=== PATIENT | female | born 1945 | race Caucasian/White ===

== ENCOUNTER 2020-06-27 08:04 | Emergency (ER) | payer BC, MEDICARE ==
[2020-06-27] MEDS ORDERED: NORMAL SALINE 1000 ML 1,000 ML IV ONE (08:15)
[2020-06-27] MEDS ORDERED: DILTIAZEM HCL INJ 25 MG/5 ML VIAL IV ONE (08:15)
--- NOTE | 2020-06-27 08:22 | ER Document Report ---
ED General - General Chief Complaint: Respiratory Distress Stated Complaint: RESPIRATORY DISTRESS Primary Care Provider: MICHELL FORTE MD [Primary Care Provider] - Follow up as needed Mode of Arrival: Medic Information source: Patient, Emergency Med Personnel Cannot obtain history due to: Unstable vital signs Notes: 06/27/20 08:17 - ED Nursing Note by MARLA LEY Acct Num: [id number] : 1945 Patient Age: 75 Patient to ED by EMS with complaint of fall at home with sudden onset SOB. Patient per EMS had a fall at home just [employer]. Per EMS, on arrival, patient was alert and oriented. During attempt to stand patient to place on EMS stretcher, patient O2 saturation decreased to 60% on RA. Patient placed on NRB without significant improvement, placed on CPAP. O2 93% on arrival to ED. While being moved to ED bed, patient O2 decreased to 77% on CPAP. Patient placed on CPAP by Respiratory at bedside, improved to 80% at this time. Patient hx of Lung cancer, wears 2L NC at home. Patient had negative 12 lead. Patient reports difficulty breathing/SOB since yesterday. Patient lung sounds clear per EMS, RR 130-140's enroute, afebrile. 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 Lambert at [facility]. EMS 20G in LAC, 20G established in RAC. Blood drawn and sent to lab. Patient reports taking Xarelto, Potassium, Norvasc, Metoprolol, HCTZ, Folic Acid and B12. Patient is Aox4. Tachypneic at this time. HR 139. MY NOTES 75-year-old female arrives by EMS in respiratory distress. Patient uses oxygen 2 L with long tubing at home. She does not use BiPAP at home. EMS reports they have never been out to her house ongoing branch for her but rather for her . Patient was found to have 60% sat on room air and was 93% on BiPAP per EMS. Patient arrives tachycardic tachypneic hypoxic and patient is unable to provide history because of BiPAP in progress. Patient is on Xarelto Norvasc 5 metoprolol 50 HCTZ 25 B12 and folic acid. Patient refuses any intubation and is awake and able to make her choice known. She is able to shake her head yes and no and dislikes the BiPAP by placing her finger between it and her face. I was called by radiologist around 2044 with possibility of infiltrate pneumonia and also possible sousa. Her son arrived by 0 900 and he advises that she is seen by Dr. Josie Garcia at [place] and wants her transfer there. I attempted to call Dr. Fink at but was unable to get her on the phone. Her son attempted himself as well. I then called Pearl at the transfer center at [facility] and she advises that she will call us back. TRAVEL OUTSIDE OF THE [place] IN LAST 30 DAYS: No - HPI Onset: This morning Onset/Duration: Sudden, Persistent, Worse Severity: Moderate Pain Level: 3 Associated symptoms: Shortness of breath, Weakness Exacerbated by: Coughing, Deep breathing Relieved by: Denies Similar symptoms previously: Yes Recently seen / treated by doctor: Yes - 2 weeks ago at [facility] Dr. Cassidy Garcia; neg covid 19 at that time - Related Data Allergies/Adverse Reactions: No Known Allergies Allergy (Unverified 06/27/20 08:24) Past Medical History - General Information source: Patient, Emergency Med Personnel - Social History Smoking Status: Former Smoker - quit 25 years ago Cigarette use (# per day): No Chew tobacco use (# tins/day): No Smoking Education Provided: No Frequency of alcohol use: None Drug Abuse: None Lives with: Family Family History: COPD Patient has suicidal ideation: No Patient has homicidal ideation: No Review of Systems - Review of Systems -: Yes ROS unobtainable due to patient's medical condition Constitutional: No symptoms reported EENT: No symptoms reported Cardiovascular: See HPI, Orthopnea, Dyspnea, Lightheaded Respiratory: See HPI, Short of breath Gastrointestinal: No symptoms reported Genitourinary: No symptoms reported Female Genitourinary: No symptoms reported Musculoskeletal: No symptoms reported Skin: No symptoms reported Hematologic/Lymphatic: No symptoms reported Neurological/Psychological: No symptoms reported Physical Exam - Vital signs Vitals: Resp BP Pulse Ox 42 H 111/65 69 L 06/27/20 08:08 06/27/20 08:08 06/27/20 08:08 Interpretation: Tachycardic, Hypoxic, Tachypneic - General General appearance: Anxious - HEENT Head: Normocephalic, Atraumatic Eyes: Normal Pupils: PERRL External canal: Normal Tympanic membrane: Normal Sinus: Normal Nasal: Normal Mouth/Lips: Normal Mucous membranes: Dry Pharynx: Normal - Respiratory Respiratory status: Respiratory distress, Labored, Tachypnea Chest status: Nontender Breath sounds: Normal Chest palpation: Normal - Cardiovascular Rhythm: Tachycardia Heart sounds: Normal auscultation Murmur: No - Abdominal Inspection: Normal Distension: No distension Bowel sounds: Normal Tenderness: Nontender Organomegaly: No organomegaly - Rectal Hemorrhoids: Other - deferred - Genitourinary Bimanuel exam: Other - deferred - Back Back: Normal, Nontender - Extremities General upper extremity: Normal inspection, Nontender, Normal color, Normal ROM, Normal temperature General lower extremity: Normal inspection, Nontender, Normal color, Normal ROM, Normal temperature, Normal weight bearing. No: Deandra's sign - Neurological Neuro grossly intact: Yes Cognition: Normal Orientation: AAOx4 Christal Coma Scale Eye Opening: Spontaneous Christal Coma Scale Verbal: Oriented Christal Coma Scale Motor: Obeys Commands [place] Coma Scale Total: 15 Speech: Normal Motor strength normal: LUE, RUE, LLE, RLE Sensory: Normal - Psychological Associated symptoms: Anxious - Skin Skin Temperature: Warm Skin Moisture: Dry Skin Color: Normal Course - Vital Signs Vital signs: Temp Pulse Resp BP Pulse Ox 51 H 109/80 76 L 06/27/20 12:16 06/27/20 12:16 06/27/20 12:16 - Laboratory Result Diagrams: 06/27/20 08:12 06/27/20 08:12 Laboratory results interpreted by me: 06/27/20 06/27/20 06/27/20 08:12 08:12 08:12 RDW 16.5 H Band Neutrophils % 2 L Metamyelocytes % 2 H Carbonic Acid 0.92 L ABG pH 7.33 L ABG pCO2 30.6 L ABG pO2 55.9 L ABG HCO3 15.8 L ABG Total CO2 16.8 L ABG O2 Saturation 87.7 L Chloride 96 L Carbon Dioxide 17 L Anion Gap 24 H Glucose 266 H Direct Bilirubin 0.5 H AST 59 H Alkaline Phosphatase 136 H Total Protein 5.9 L Albumin 3.0 L Urine Protein Urine Glucose (UA) Urine Ketones Urine Blood Urine Urobilinogen 06/27/20 11:06 RDW Band Neutrophils % Metamyelocytes % Carbonic Acid ABG pH ABG pCO2 ABG pO2 ABG HCO3 ABG Total CO2 ABG O2 Saturation Chloride Carbon Dioxide Anion Gap Glucose Direct Bilirubin AST Alkaline Phosphatase Total Protein Albumin Urine Protein 100 H Urine Glucose (UA) 50 H Urine Ketones TRACE H Urine Blood SMALL H Urine Urobilinogen 2.0 H - Diagnostic Test Radiology reviewed: Reports reviewed - Patient does not meet any exclusion criteria for TPA at this time. I have reviewed the risks and benefits of ad ministration of TPA with the family at the bedside. We have reviewed the risks of intracranial bleed and the possible benefits of increased functional independence at 90 days with the use of TPA. - EKG Interpretation by Me EKG shows normal: Sinus rhythm Rate: Tachycardia - With heart rate [address] elevation no ST depression no T wave depression or elevation and this was read by me. Rhythm: SVT Critical Care Note - Critical Care Note Comments: I spoke with Dr. Wilbur navarro who is on-call for Dr. Brady. This call was made around 1000 and he advises he accepts the patient but needs a sousa test. I spoke with our laborer [facility] for this sousa test. Paperwork for transfer was filled out by myself. I spoke with Dr. Wilbur Amanda around 1210 around the time that both ground and air through with Luana RN arrived. Patient gave Zaira VALENTIN permission for intubation if she happened to go unconscious. Patient gave Rohith her son power of authority if something happened. Patient able to speak full sentences on 73% saturation. Discharge - Discharge Clinical Impression: Respiratory distress, acute, SVT (supraventricular tachycardia) COPD (chronic obstructive pulmonary disease) Qualifiers: COPD type: unspecified COPD Qualified Code(s): J44.9 - Chronic obstructive pulmonary disease, unspecified Lung cancer Qualifiers: Laterality: right Lung location: unspecified part of lung Qualified Code(s): C34.91 - Malignant neoplasm of unspecified part of right bronchus or lung Condition: Stable Disposition: [facility] Admitting Provider: Yuliet Amanda Additional Instructions: transfer this pt to [place] Referrals: MICHELL FORTE MD [Primary Care Provider] - Follow up as needed
[2020-06-27 08:50] LABS: HEMOGLOBIN 12.6 g/dL (12.0-15.5); MEAN CORPUSCULAR HGB CONC 32.3 g/dL (32.0-36.0); MEAN CORPUSCULAR VOLUME 83 fl (80-97); PLATELET COUNT 265 10^3/uL (150-450); RED BLOOD COUNT 4.68 10^6/uL (3.72-5.28); RED CELL DISTRIBUTION WIDTH 16.5 % (11.5-14.0); WHITE BLOOD COUNT 5.3 10^3/uL (4.0-10.5)
[2020-06-27] MEDS ORDERED: CEFTRIAXONE INJ 1000 MG VIAL IV ONE (08:54)
[2020-06-27] MEDS ORDERED: AZITHROMYCIN INJ 500 MG VIAL IV ONE (08:54)
[2020-06-27] MEDS ORDERED: DEXAMETHASONE SOD PHOS INJ 10 MG/1 ML VIAL IV ONE (08:55)
--- NOTE | 2020-06-27 09:00 | RADIOLOGY REPORT (SQ) ---
EXAM DESCRIPTION: CHEST SINGLE VIEW IMAGES COMPLETED DATE/TIME: 06/27/2020 8:33 am REASON FOR STUDY: hypoxia COMPARISON: None. EXAM PARAMETERS: NUMBER OF VIEWS: One view. TECHNIQUE: Single frontal radiographic view of the chest acquired. RADIATION DOSE: NA LIMITATIONS: None. FINDINGS: LUNGS AND PLEURA: Multifocal patchy areas of consolidation in the right upper lung and ri ght middle -right lower lung. Diffuse extensive multifocal areas of airspace disease and ground-glas s attenuated areas in the lungs. Differential diagnosis includes possibility of COVID-19 pneumonia, inflammatory/infectious etiologies, atypical infections. A loss of volume is suggested in the right upper lung with the possibility of mass not entirely exclu ded. Small right pleural effusion. No evidence of pneumothorax. MEDIASTINUM AND HILAR STRUCTURES: Fullness in the right hilar and mediastinal regions. HEART AND VASCULAR STRUCTURES: Heart normal in size. Normal vasculature. BONES: No acute findings. HARDWARE: None in the chest. OTHER: No other significant finding. IMPRESSION: 1. Extensive multifocal ground-glass attenuated areas and airspace disease in the lungs with patchy areas of consolidation suggested in the right lung. Considerations for these findings i nclude the possibility of COVID-19 pneumonia, inflammatory/infectious etiologies, atypical infections . 2. A loss of volumein the right upper lung with the possibility of mass not entirely excluded. Full ness in the right hilar and mediastinal regions. Correlation suggested. COMMENT: 1. The results of this examination were discussed with the emergency department provider o umnag 06/27/2020 at 08:50 hours. TECHNICAL DOCUMENTATION: JOB ID: [id number] 2010 [employer]- All Rights Reserved Reading location - IP/workstation name: [email or web address]
[2020-06-27 09:13] LABS: ABSOLUTE LYMPHOCYTES# (MANUAL) 1.1 10^3/uL (0.5-4.7); ABSOLUTE MONOCYTES # (MANUAL) 0.7 10^3/uL (0.1-1.4); BAND NEUTROPHILS % (MANUAL) 2 % (3-5); BASOPHILS % (MANUAL) 0 % (0-2); EOSINOPHILS % (MANUAL) 1 % (0-6); LYMPHOCYTES % (MANUAL) 18 % (13-45); METAMYELOCYTES % (MANUAL) 2 % (0-1); MONOCYTES % (MANUAL) 13 % (3-13); NUCLEATED RED BLOOD CELLS 2 /100 WBC (0); SEGMENTED NEUTROPHILS % (MAN) 62 % (42-78); TOTAL CELLS COUNTED 100
[2020-06-27 09:14] LABS: ALKALINE PHOSPHATASE 136 U/L (38-126); BILIRUBIN,DIRECT 0.5 mg/dL (0.0-0.4); BILIRUBIN,TOTAL 0.7 mg/dL (0.2-1.3); BLOOD UREA NITROGEN 20 mg/dL (7-20); CALCIUM 8.6 mg/dL (8.4-10.2); GLUCOSE 266 mg/dL (75-110); POTASSIUM 4.5 mmol/L (3.6-5.0); TOTAL PROTEIN 5.9 g/dL (6.3-8.2)
[2020-06-27 09:15] LABS: ANISOCYTOSIS 1+; POLYCHROMASIA 1+
[2020-06-27 09:16] LABS: PLATELET CLUMPS PRESENT; PLATELET COMMENT ADEQUATE; PLATELET LARGE PRESENT
[2020-06-27 09:20] LABS: CARBON DIOXIDE 17 mmol/L (22-30); CHLORIDE 96 mmol/L (98-107)
[2020-06-27 09:21] LABS: ASPARTATE AMINO TRANSFERASE 59 U/L (14-36)
[2020-06-27 09:24] LABS: ANION GAP 24 (5-19)
[2020-06-27 09:38] LABS: ARTERIAL BLOOD BASE EXCESS -8.9 mmol/L; ARTERIAL BLOOD FIO2 100%; ARTERIAL BLOOD H2CO3 0.92 mmol/L (1.05-1.35); ARTERIAL BLOOD HCO3 15.8 mmol/L (20-24); ARTERIAL BLOOD O2 SATURATION 87.7 % (94-98); ARTERIAL BLOOD PCO2 30.6 mmHg (35-45); ARTERIAL BLOOD PH 7.33 (7.35-7.45); ARTERIAL BLOOD PO2 55.9 mmHg (80-100); ARTERIAL BLOOD TOTAL CO2 16.8 mmol/L (21-25)
[2020-06-27 11:24] LABS: APPEARANCE,URINE CLOUDY; BILIRUBIN,URINE NEGATIVE (NEGATIVE); COLOR,URINE AMBER; GLUCOSE, URINE 50 mg/dL (NEGATIVE); KETONES,URINE TRACE mg/dL (NEGATIVE); LEUKOCYTE ESTERASE,URINE NEGATIVE (NEGATIVE); NITRITE,URINE NEGATIVE (NEGATIVE); PROTEIN,URINE 100 mg/dL (NEGATIVE); URINE SPECIFIC GRAVITY 1.016
[2020-06-27 12:31] VITALS: BP 109/80
--- NOTE | 2020-06-27 17:35 | EKG REPORT ---
SEVERITY:- ABNORMAL ECG - SUPRAVENTRICULAR TACHYCARDIA VERSUS SINUS TACYCARDIA BORDERLINE T ABNORMALITIES, INFERIOR LEADS : Confirmed by: Karin Rizo MD 27-Jun-2020 17:35:10
== END 2020-06-27 12:59 | disposition short-term general hospital (02) ==
LOC: ER 08:04
DX: U07.1 COVID-19 (principal); J44.9 Chronic obstructive pulmonary disease, unspecified; C34.91 Malignant neoplasm of unspecified part of right bronchus or lung; I47.1 Supraventricular tachycardia; Z99.81 Dependence on supplemental oxygen; R53.1 Weakness; R42 Dizziness and giddiness; Z87.891 Personal history of nicotine dependence; Z79.01 Long term (current) use of anticoagulants; Z79.899 Other long term (current) drug therapy
CPT/HCPCS: 93005; 99285; 96361; 96375; 96365; 96368; 36415; 87040; 82803; 83735; 85025; 80053; 81001; 71045; 93010; 36600; U0003; J3490; J0696; J7030; J0456; J1100; C9803; 87635